=== PATIENT | male | born 1960 | race African-American/Black ===

== ENCOUNTER 2018-09-08 08:56 | Emergency (ER) | payer OTHER, MEDICAID ==
[~2018-09-08] VITALS: Ht 180.3 cm; Wt 89.0 kg
[2018-09-08] MEDS ORDERED: KETOROLAC 60MG/2ML VIAL IM ONE (11:15)
[2018-09-08] MEDS ORDERED: HYDROCODONE/ACETAMINOPHEN 5/325MG TABLET PO ONE (11:15)
[2018-09-08 12:23] VITALS: BP 121/78
== END 2018-09-08 12:28 | disposition home or self-care (01) ==
LOC: ER 08:56
DX: S63.602A Unspecified sprain of left thumb, initial encounter (principal); M25.512 Pain in left shoulder; M79.662 Pain in left lower leg; V59.40XA Driver of pick-up truck or van injured in collision with unspecified motor vehicles in traffic accident, initial encounter; Y93.89 Activity, other specified; Y92.89 Other specified places as the place of occurrence of the external cause; Y99.8 Other external cause status
CPT/HCPCS: 29125; 73130; 96372; 99283; J1885; Z7610